=== PATIENT | male | born 1965 | race Caucasian/White ===

== ENCOUNTER 2024-01-29 06:40 | Emergency (ER) | payer OTHER, SELFPAY ==
[2024-01-29] VITALS (11 sets, daily range): BP systolic 127–151; BP diastolic 71–90; PULSE 76–106; RESP 16–20; TEMP 36.5–37; O2SAT 90–100; BMI 41.1
--- NOTE | 2024-01-29 07:27 | DI.CT.S_ITS ---
PROCEDURE: CT ABDOMEN PELVIS W CON INDICATIONS: Abdominal pain TECHNIQUE: After the administration of intravenous contrast, axial sections acquired from the lung bases to the pubic symphysis. Coronal and sagittal reformats were performed. For radiation dose reduction, the following was used: automated exposure control, adjustment of mA and/or kV according to patient size. COMPARISON: [facility], CT, CT ABDOMEN PELVIS WITH CONTRAST, 04/24/2023, 23:46. FINDINGS: Image quality: Diagnostic. Lower Chest: No significant findings. ABDOMEN: Liver: No solid mass. Gallbladder: No radiopaque gallstones or wall thickening. Biliary ducts: No biliary dilation. Pancreas: Extensive pancreatic calcifications are consistent with chronic pancreatitis. No acute pancreatitis noted. The pancreatic duct is chronically dilated. No focal mass identified.2 Spleen: Size is within normal limits. Adrenal Glands: No adrenal nodules. Kidneys and Ureters: No hydronephrosis. No solid mass. No complex renal cystic lesion which requires follow up. Stomach and Bowel: Normal colonic caliber, without significant wall thickening. Normal appendix. Peritoneum: No abnormal intraperitoneal fluid. No free air. Ventral Wall: No significant ventral hernia. Abdominal Nodes: No retroperitoneal or mesenteric adenopathy by size criteria. Vessels: Aorta and inferior vena cava are normal in size. PELVIS: Pelvic Organs: Mild prostatomegaly.. Bladder: No bladder wall thickening, accounting for underdistention. Pelvic Nodes: No enlarged lymph nodes. Miscellaneous: No inguinal hernias are seen. Bones: Lumbar degenerative change. No lytic or blastic bony lesions. No compression fractures. IMPRESSION: 1. No acute abdominal process. 2. Changes of chronic pancreatitis. Dictated by: Scot Jolly M.D. on 01/29/2024 at 9:15 Approved by: Scot Jolly M.D. on 01/29/2024 at 9:24
--- NOTE | 2024-01-29 07:29 | ED.BACK ---
HPI - Back Pain/Injury General Chief Complaint: Back Pain/Injury Stated Complaint: lower back pain Time Seen by Provider: 01/29/24 07:15 Source: patient History of Present Illness HPI Narrative: Patient here with significant other complains low back pain radiating to his inner thighs. This back pain is not new. Patient is on L and I for the past 1 year for his work. 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 Had injury 1 year ago and has had limited work duties with lifting however last week there was an infection and he did have to do more lifting. However he has had some chills and abdominal bloating as well. No chest pain. At times gets tingling to the legs and groin area. But no bowel or bladder incontinence or retention. No weakness to the legs. Is able to stand and walk. Pain is worse with trying to get up from a seated or lying position. Patient in shorts. Patient followed by [facility] in [place] for his L and I and primary care patient had SI joint injection 2 weeks ago. This is not new. Also has had hip joint injections in the past. Patient is on Flexeril for pain at home. Did try taking left her hydrocodone for in the past with minimal relief. Otherwise no dysuria frequency. No cough cold congestion or fever. Patient is diabetic. Related Data Previous Rx's Medication Instructions Recorded ondansetron 4 mg disintegrating 4 mg PO Q8H PRN nausea and 01/29/24 tablet vomiting #10 tabs oxycodone-acetaminophen 5 mg-325 1 tab PO Q4-6H PRN pain #20 tabs 01/29/24 mg tablet (Percocet) Allergies Allergy/AdvReac Type Severity Reaction Status Date / Time Sulfa (Sulfonamide Allergy Verified 01/29/24 07:55 Antibiotics) [id number] Reductase AdvReac Verified 01/29/24 07:55 Inhibitor Review of Systems Review of Systems Narrative: GENERAL: Positive chills, fatigue, malaise, negative fever, sweats. HEENT: negative sinus pain, ear pain, sore throat RESPIRATORY: negative dyspnea, cough CARDIOVASCULAR: negative chest pain, palpitations GASTROINTESTINAL: Positive nausea, negative vomiting, positive abdominal pain : negative dysuria, frequency, hematuria MUSCULOSKELETAL: Positive muscle or bony pain SKIN: negative rash, skin lesions NEUROLOGIC: negative weakness, positive numbness ROS Unobtainable: All systems reviewed & are unremarkable except as noted in HPI and below Patient History Social History Smoking Status: Never smoker Smoking Status: Never smoker Substance Use Type: marijuana Exam Narrative Exam Narrative: GENERAL: in no distress, not toxic not dyspneic HEAD: Normocephalic. EYES: Pupils equal round ENT: Mucous membranes moist. NECK: Trachea midline. CARDIOVASCULAR: Regular rate and rhythm RESPIRATORY: Clear to auscultation. Breath sounds equal bilaterally. No wheezes, rales, or rhonchi. GASTROINTESTINAL: Abdomen soft, non-tender, abdomen is soft nontender no peritoneal signs no CVA tenderness no pain out of portion exam bowel sounds are present. No peritoneal signs no guarding no rebound EXTREMITIES: No gross deformities. Reproducible bilateral inner thigh tenderness but no palpable cords. Patient states he was bending and lifting with his legs last week when they were effecting a resident from the shelter. There was a lot of items in the residents. The resident was a hoarder BACK: No flank tenderness. There is reproducible bilateral low paralumbar muscle tenderness. No midline tenderness or step-off. No erythema or fluctuance or induration. Limited side bends left and right as well as leaning forward back due to pain. Is slow to get up to stand from laying in seated position at the bed. Able to stand. Slow steady gait but no foot drop. Does have pain bilateral legs with straight leg raises at 45? NEURO: AOx4. Light touch intact to bilateral legs. Strong bilateral ankle flexion-extension as well as patellar reflexes. Steady slow gait but no foot drop SKIN: Warm and dry PSYCH: Not anxious, is cooperative Initial Vital Signs Initial Vital Signs: Vital Signs Temperature 97.7 F 01/29/24 06:50 Pulse Rate 106 H 01/29/24 06:50 Respiratory Rate 16 01/29/24 06:50 Blood Pressure 151/86 H 01/29/24 06:50 Pulse Oximetry 93 01/29/24 06:50 Oxygen Delivery Method Room Air 01/29/24 06:50 Course Orders Ordered: Discontinued Medications Sodium Chloride (Normal Saline 0.9%) 1,000 mls @ 1,000 mls/hr IV BOLUS ONE Stop: 01/29/24 08:25 Last Infusion: 01/29/24 09:08 Dose: Infused Documented By: Admin: 01/29/24 07:57 Dose: 1,000 mls/hr Documented By: TAMMY Morphine Sulfate (Morphine 4 Mg/Ml Inj) 4 mg IV NOW ONE Stop: 01/29/24 07:27 Last Admin: 01/29/24 07:56 Dose: 4 mg Documented By: TAMMY Ondansetron HCl (Ondansetron 4 Mg/2 Ml Inj) 4 mg IV NOW ONE Stop: 01/29/24 07:27 Last Admin: 01/29/24 09:08 Dose: Not Given Documented By: TAMMY Oxycodone/Acetaminophen (Oxycodone/Acetaminophen 5/325 Tablet) 2 tab PO NOW ONE Stop: 01/29/24 09:31 Last Admin: 01/29/24 10:00 Dose: 2 tab Documented By: TAMMY Vital Signs Vital signs: Vital Signs - 8 hr 01/29/24 06:50 01/29/24 07:05 01/29/24 07:30 Temperature 97.7 F Pulse Rate 106 H 92 H 101 H Respiratory Rate 16 Blood Pressure 151/86 H Pulse Oximetry 93 90 L 91 Oxygen Delivery Method Room Air 01/29/24 07:30 01/29/24 08:02 01/29/24 08:15 Temperature Pulse Rate Respiratory Rate Blood Pressure 148/85 H 136/85 Pulse Oximetry 96 Oxygen Delivery Method 01/29/24 08:15 01/29/24 08:30 01/29/24 08:30 Temperature Pulse Rate 100 H 90 Respiratory Rate Blood Pressure 139/82 Pulse Oximetry 92 93 Oxygen Delivery Method 01/29/24 08:54 01/29/24 08:58 01/29/24 09:00 Temperature Pulse Rate 88 Respiratory Rate Blood Pressure 141/85 H 134/71 Pulse Oximetry 92 Oxygen Delivery Method 01/29/24 10:03 Temperature 98.6 F Pulse Rate 89 Respiratory Rate 20 Blood Pressure 139/90 Pulse Oximetry 99 Oxygen Delivery Method Room Air MDM - Back Pain/Injury Lab Data 01/29/24 07:48 01/29/24 07:48 Labs: Lab Results 01/29/24 01/29/24 Range/Units 07:48 08:55 WBC 8.4 (4.5-11.0) X10^3/uL RBC 5.13 (4.5-5.9) X10^6/uL Hgb 14.2 (13.5-17.5) g/dL Hct 42.5 (41-53) % MCV 82.7 (80-100) fL MCH 27.7 (26-34) PG MCHC 33.5 (30-36) % RDW 13.4 (11.6-14.8) % Plt Count 243 (150-400) X10^3/uL Neut % (Auto) 78.7 H (50-75) % Lymph % (Auto) 11.6 L (25-40) % [place] % (Auto) 7.0 (3-14) % Eos % (Auto) 2.3 (2-4) % Baso % (Auto) 0.4 (0-2) % Neut # (Auto) 6600 (2771-1909) /uL Lymph # (Auto) 1000 L (9678-7273) /uL [place] # (Auto) 600 (0-900) /uL Eos # (Auto) 200 (0-450) /uL Baso # (Auto) 0 (0-100) /uL Sodium 139 (137-145) mmol/L Potassium 4.3 (3.4-5.1) mmol/L Chloride 105 (98-107) mmol/L Carbon Dioxide 28 (22-32) mmol/L BUN 17 (9-20) mg/dL Creatinine 0.94 (0.66-1.25) mg/dL Estimated GFR > 60 (>60) mL/min BUN/Creatinine Ratio 18.1 (6-22) Glucose 156 H (70-100) mg/dL Calcium 8.9 (8.4-10.2) mg/dL Total Bilirubin 0.7 (0.2-1.3) mg/dL AST 20 (17-59) IU/L ALT 24 (<50) IU/L Alkaline Phosphatase 50 (38-126) U/L Total Protein 7.2 (6.3-8.2) g/dL Albumin 4.2 (3.5-5.0) g/dL Globulin 3.0 (1.7-4.1) g/dL Albumin/Globulin Ratio 1.4 (1.0-2.8) Lipase 65 (23-300) U/L Chlamy pneumoniae PCR Not detected (Not Detect) Adenovirus (PCR) Not detected (Not Detect) B.parapertussis DNA PCR Not detected (Not Detecte) Coronavirus OC43 (PCR) Not detected (Not Detect) Coronavirus HKU1 (PCR) Not detected (Not Detect) Coronavirus 229E (PCR) Not detected (Not Detect) SARS-CoV-2 (PCR) Not detected (Not Detecte) Coronavirus NL63 (PCR) Not detected (Not Detect) Human Metapneumovir PCR Not detected (Not Detect) Influenza Type A (PCR) Not detected (Not Detect) Influenza Type B (PCR) Not detected (Not Detect) M. pneumoniae (PCR) Not detected (Not Detect) Parainfluenza 1 (PCR) Not detected (Not Detect) Parainfluenza 2 (PCR) Not detected (Not Detect) Parainfluenza 3 (PCR) Not detected (Not Detect) Parainfluenza 4 (PCR) Not detected (Not Detect) RSV (PCR) Not detected (Not Detect) Entero/Rhino (PCR) Not detected (Not Detect) Urine Dip Bedside Urine Glucose 1000 mg/dl Bedside Urine Bilirubin - Negative Bedside Urine Ketone - Negative Urine Specific [place] 1.010 Bedside Urine Occult Blood - Negative Bedside Urine pH 6.0 Bedside Urine Protein - Negative Bedside Urine Urobilinogen - Negative Bedside Urine Nitrite - Negative Bedside Urine Leukocytes - Negative Esterase Imaging Data CT scan - abdomen/pelvis: Radiologist's Impression: [place] [address] CT Scan Report Signed Patient: Contreras Gonzalez MR#: [id number] : 1965 Acct:[id number] Age/Sex: 58 / M Date of Service: 01/29/24 Loc: ED Accession Number: [id number] Procedure: CT abdomen pelvis w con Ordering Provider: Carlos Gamez MD PROCEDURE: CT ABDOMEN PELVIS W CON INDICATIONS: Abdominal pain TECHNIQUE: After the administration of intravenous contrast, axial sections acquired from the lung bases to the pubic symphysis. Coronal and sagittal reformats were performed. For radiation dose reduction, the following was used: automated exposure control, adjustment of mA and/or kV according to patient size. COMPARISON: [facility], CT, CT ABDOMEN PELVIS WITH CONTRAST, 04/24/2023, 23:46. FINDINGS: Image quality: Diagnostic. Lower Chest: No significant findings. ABDOMEN: Liver: No solid mass. Gallbladder: No radiopaque gallstones or wall thickening. Biliary ducts: No biliary dilation. Pancreas: Extensive pancreatic calcifications are consistent with chronic pancreatitis. No acute pancreatitis noted. The pancreatic duct is chronically dilated. No focal mass identified.2 Spleen: Size is within normal limits. Adrenal Glands: No adrenal nodules. Kidneys and Ureters: No hydronephrosis. No solid mass. No complex renal cystic lesion which requires follow up. Stomach and Bowel: Normal colonic caliber, without significant wall thickening. Normal appendix. Peritoneum: No abnormal intraperitoneal fluid. No free air. Ventral Wall: No significant ventral hernia. Abdominal Nodes: No retroperitoneal or mesenteric adenopathy by size criteria. Vessels: Aorta and inferior vena cava are normal in size. PELVIS: Pelvic Organs: Mild prostatomegaly.. Bladder: No bladder wall thickening, accounting for underdistention. Pelvic Nodes: No enlarged lymph nodes. Miscellaneous: No inguinal hernias are seen. Bones: Lumbar degenerative change. No lytic or blastic bony lesions. No compression fractures. IMPRESSION: 1. No acute abdominal process. 2. Changes of chronic pancreatitis. Dictated by: Scot Jolly M.D. on 01/29/2024 at 9:15 Approved by: Scot Jolly M.D. on 01/29/2024 at 9:24 US - DVT: Radiologist's Impression: [place] [address] Ultrasound Report Signed Patient: Contreras Gonzalez MR#: [id number] : 1965 Acct:[id number] Age/Sex: 58 / M Date of Service: 01/29/24 Loc: ED Accession Number: [id number] Procedure: US periph venous low extrem bi Ordering Provider: Carlos Gamez MD PROCEDURE: US PERIPH VENOUS LOW EXTREM BI INDICATIONS: thigh pain/swelling TECHNIQUE: Real-time imaging, as well as color and pulse Doppler interrogation, were performed of the deep veins of both legs from the inguinal ligament to the popliteal fossa, with documentation of the visualized calf veins. COMPARISON: None. FINDINGS: Right: The common femoral, femoral, popliteal, and the visualized calf veins are normally compressible, and free of intraluminal thrombus. Color and pulse Doppler demonstrate normal phasic intravascular flow. There is normal augmentation response to distal compression maneuver. A right-sided Gonzalez's cyst is seen that measures 4.4 x 1.6 x 3.6 cm. Left: The common femoral, femoral, popliteal, and the visualized calf veins are normally compressible, and free of intraluminal thrombus. Color and pulse Doppler demonstrate normal phasic intravascular flow. There is normal augmentation response to distal compression maneuver. IMPRESSION: No findings of deep venous thrombosis in either lower extremity. Dictated by: Arnel Quiroga M.D. on 01/29/2024 at 9:41 Approved by: Arnel Quiroga M.D. on 01/29/2024 at 9:41 [facility] Narrative Medical decision making narrative: Patient here with significant other complains low back pain radiating to his inner thighs. This back pain is not new. Patient is on L and I for the past 1 year for his work. 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 Had injury 1 year ago and has had limited work duties with lifting however last week there was an infection and he did have to do more lifting. However he has had some chills and abdominal bloating as well. No chest pain. At times gets tingling to the legs and groin area. But no bowel or bladder incontinence or retention. No weakness to the legs. Is able to stand and walk. Pain is worse with trying to get up from a seated or lying position. Patient in shorts. Patient followed by [facility] in [place] for his L and I and primary care patient had SI joint injection 2 weeks ago. This is not new. Also has had hip joint injections in the past. Patient is on Flexeril for pain at home. Did try taking left her hydrocodone for in the past with minimal relief. Otherwise no dysuria frequency. No cough cold congestion or fever. Patient is diabetic. After history and exam CBC CMP urinalysis lipase CT abdomen pelvis morphine Zofran normal saline, MRI lumbar spine respiratory panel Patient did provide MRI outpatient from his medical records April 09, 2023 MRI spine without contrast impression multilevel degenerative disc and facet changes. Prominent right lateral osteophytes L3-L4. L4-L5. L5 S1. Mild canal narrowing at multiple levels. Moderate right foraminal narrowing L3-L4 and L4-L5 [facility] Medical records reviewed: No previous visit for this complaint Differential considered: Includes but not limited to spinal abscess lumbar radiculopathy, back strain herniated disc Lab Test results independently reviewed as above. Pertinent findings: WBC 8.4 hemoglobin 14.2 sodium 139 potassium 4.3 GFR greater than 60 glucose 156 AST 20 ALT 24 lipase 65, POC urine negative leukocytes negative nitrite Respiratory panel negative Imaging studies independently reviewed: CT abdomen pelvis no acute findings Bilateral leg ultrasound no DVT Consultations: None indicated this time Treatments: Morphine Zofran normal saline oxycodone Re-evaluations: 11:00 a.m.. Updated patient results. Likely back strain from his overuse of his back last week beyond his L and I recommendations. Pain is controlled. Short course of pain medication provided. Return precautions reviewed. Patient desires it is driving. Discussion: Appropriate for discharge home. Exam is reassuring. communications technician did tell me that his right psoas muscle was very tight and painful on pressing down during ultrasound procedure. 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 Short course of pain medication provided. Return precautions reviewed. Patient desires discharge home Diagnosis: Acute on chronic back pain, lumbar strain, thigh strain Discharge Plan Departure Patient Disposition: Home Clinical Impression: Acute exacerbation of chronic low back pain Strain of lumbar region Qualifiers: Encounter type: initial encounter Qualified Code(s): S39.012A - Strain of muscle, fascia and tendon of lower back, initial encounter Muscle strain of thigh Qualifiers: Encounter type: initial encounter Laterality: unspecified laterality Qualified Code(s): S76.919A - Strain of unspecified muscles, fascia and tendons at thigh level, unspecified thigh, initial encounter Instructions: Managing Chronic Low Back Pain, DI for Muscle Strain, DI for Back Strain or Sprain Activity Restrictions/Additional Instructions: Your laboratory studies and imaging studies are reassuring as well as your exam. Likely over strained herself last week with work. This also caused strain in the thigh muscles. Laboratory studies are reassuring. No antibiotics are indicated. Prescription for pain medication/short course has been provided for you. Please do follow up with your L and I provider and family doctor. No driving or operating machine today or when taking prescribed pain medication. Return if worse if any questions or concerns. Work note has been provided for you. Prescriptions: New oxycodone-acetaminophen [Percocet] 5-325 mg tablet 1 tab PO Q4-6H PRN (Reason: pain) Qty: 20 0RF ondansetron 4 mg tablet,disintegrating 4 mg PO Q8H PRN (Reason: nausea and vomiting) Qty: 10 0RF Stand Alone Forms: Patient Portal/API, Work Release Note
[2024-01-29] MEDS: MORPHINE 4 MG/ML INJ IV (07:56)
[2024-01-29] MEDS: SODIUM CHLORIDE 0.9% 1,000 ML 1000 ML IV (07:57)
[2024-01-29 08:02] LABS: Add Manual Diff / Slide Review NO; Basophils Absolute Auto 0 /uL (0-100); Basophils Percent Auto 0.4 % (0-2); Eosinophils Absolute Auto 200 /uL (0-450); Eosinophils Percent Auto 2.3 % (2-4); Hematocrit 42.5 % (41-53); Hemoglobin 14.2 g/dL (13.5-17.5); Lymphocytes Absolute Auto 1000 /uL (1100-4500); Lymphocytes Percent Auto 11.6 % (25-40); Mean Corpuscular HGB Conc 33.5 % (30-36); Mean Corpuscular Hemoglobin 27.7 PG (26-34); Mean Corpuscular Volume 82.7 fL (80-100); Monocytes Absolute Auto 600 /uL (0-900); Neutrophils Absolute Auto 6600 /uL (1500-7000); Neutrophils Percent Auto 78.7 % (50-75); Platelet Count 243 X10^3/uL (150-400); Red Blood Cell Count 5.13 X10^6/uL (4.5-5.9); Red Cell Distribution Width 13.4 % (11.6-14.8); White Blood Cell Count 8.4 X10^3/uL (4.5-11.0)
[2024-01-29 08:06] LABS: Alanine Aminotransferase 24 IU/L (<50); Albumin 4.2 g/dL (3.5-5.0); Albumin Globulin Ratio 1.4 (1.0-2.8); Alkaline Phosphatase 50 U/L (38-126); Aspartate Aminotransferase 20 IU/L (17-59); BUN Creatinine Ratio 18.1 (6-22); Bilirubin Total 0.7 mg/dL (0.2-1.3); Blood Urea Nitrogen 17 mg/dL (9-20); Calcium 8.9 mg/dL (8.4-10.2); Carbon Dioxide 28 mmol/L (22-32); Chloride 105 mmol/L (98-107); Estimated Glomerular Filt Rate > 60 mL/min (>60); Glucose 156 mg/dL (70-100); HEMOLYSIS 16 (0-50); Lipase 65 U/L (23-300); Potassium 4.3 mmol/L (3.4-5.1); Sodium 139 mmol/L (137-145); Total Protein 7.2 g/dL (6.3-8.2)
--- NOTE | 2024-01-29 09:40 | DI.US.S_ITS ---
PROCEDURE: US PERIPH VENOUS LOW EXTREM BI INDICATIONS: thigh pain/swelling TECHNIQUE: Real-time imaging, as well as color and pulse Doppler interrogation, were performed of the deep veins of both legs from the inguinal ligament to the popliteal fossa, with documentation of the visualized calf veins. COMPARISON: None. FINDINGS: Right: The common femoral, femoral, popliteal, and the visualized calf veins are normally compressible, and free of intraluminal thrombus. Color and pulse Doppler demonstrate normal phasic intravascular flow. There is normal augmentation response to distal compression maneuver. A right-sided Gonzalez's cyst is seen that measures 4.4 x 1.6 x 3.6 cm. Left: The common femoral, femoral, popliteal, and the visualized calf veins are normally compressible, and free of intraluminal thrombus. Color and pulse Doppler demonstrate normal phasic intravascular flow. There is normal augmentation response to distal compression maneuver. IMPRESSION: No findings of deep venous thrombosis in either lower extremity. Dictated by: Arnel Quiroga M.D. on 01/29/2024 at 9:41 Approved by: Arnel Quiroga M.D. on 01/29/2024 at 9:41
[2024-01-29 09:56] LABS: Adenovirus Not Detected (Not Detect); B. parapertussis Not Detected (Not Detecte); Bordetella pertussis Not Detected (Not Detect); Chlamydophila pneumoniae Not Detected (Not Detect); Coronavirus 229E Not Detected (Not Detect); Coronavirus HKU1 Not Detected (Not Detect); Coronavirus NL 63 Not Detected (Not Detect); Coronavirus OC43 Not Detected (Not Detect); Human Metapneumovirus Not Detected (Not Detect); Human Rhinovirus/Enterovirus Not Detected (Not Detect); Influenza A Not Detected (Not Detect); Influenza B Not Detected (Not Detect); Mycoplasma pneumoniae Not Detected (Not Detect); Parainfluenza Virus 1 Not Detected (Not Detect); Parainfluenza Virus 2 Not Detected (Not Detect); Parainfluenza Virus 3 Not Detected (Not Detect); Parainfluenza Virus 4 Not Detected (Not Detect); Respiratory Syncytial Virus Not Detected (Not Detect); SARS- CoV-2 Not Detected (Not Detecte)
[2024-01-29] MEDS: OXYCODONE/ACETAMINOPHEN 5/325 TABLET 2 TAB PO (10:00)
== END 2024-01-29 11:14 | disposition home or self-care (01) ==
PROVIDERS: Emergency Provider Emergency Medicine
DX: S39.012A Strain of muscle, fascia and tendon of lower back, initial encounter (principal); S76.919A Strain of unspecified muscles, fascia and tendons at thigh level, unspecified thigh, initial encounter; X50.9XXA Other and unspecified overexertion or strenuous movements or postures, initial encounter
CPT/HCPCS: 36415; 74177; 80053; 81003; 83690; 85025; 87633; 93970; 96361; 96374; 99284; 99285; J2270; Q9967

== ENCOUNTER 2024-03-09 17:38 | Emergency (ER) | payer OTHER, SELFPAY ==
[2024-03-09 17:43] VITALS: BP 145/85; PULSE 94; RESP 18; TEMP 36.2; O2SAT 94; BMI 42.5
--- NOTE | 2024-03-09 18:40 | ED.EXTPRO ---
HPI - Extremity Problem <Hugo Luna PA-C - Last Filed: 03/09/24 18:46> General Chief complaint: Extremity Problem,Nontraumatic Stated complaint: lt hip and groin px Time Seen by Provider: 03/09/24 18:17 History of Present Illness HPI Narrative: 58-year-old male with pre-existing left hip and groin pain presents to the ED with an acute on chronic exacerbation. Patient is scheduled to see his surgeon on 17 March, and patient is here to see how he can be more comfortable for the next few days. Patient complains of left hip and groin pain, worse with standing and walking. The nature of the pain is unchanged from this last year. No numbness, tingling, weakness, urinary hesitancy, saddle paresthesias. This issue has been ongoing for the past year due to a injury during work. Patient does maintenance work. No new trauma or injury reported. Patient was seen in the ED on 01/29/2024 and a DVT and intra-abdominal pathologies were ruled out with a CT and ultrasound. Related Data Previous Rx's Medication Instructions Recorded ondansetron 4 mg disintegrating 4 mg PO Q8H PRN nausea and 01/29/24 tablet vomiting #10 tabs oxycodone-acetaminophen 5 mg-325 1 tab PO Q4-6H PRN pain #20 tabs 01/29/24 mg tablet (Percocet) oxycodone-acetaminophen 5 mg-325 1 tab PO Q8H PRN pain 7 days #20 03/09/24 mg tablet (Endocet) tabs Allergies Allergy/AdvReac Type Severity Reaction Status Date / Time Sulfa (Sulfonamide Allergy Verified 01/29/24 07:55 Antibiotics) [id number] Reductase AdvReac Verified 01/29/24 07:55 Inhibitor Review of Systems <Hugo Luna PA-C - Last Filed: 03/09/24 18:46> Constitutional Constitutional: Denies chills, Denies fatigue, Denies fever(s), Denies frequent falls, Denies lethargy and Denies weakness Eyes Eyes: Denies change in vision, Denies eye discharge, Denies irritation and Denies loss of vision ENT Ears, Nose, Mouth, and Throat: Denies change in voice, Denies dizziness, Denies neck pain, Denies sore throat and Denies throat swelling Cardiovascular Cardiovascular: Denies chest pain, Denies irregular heart rhythm, Denies lightheadedness, Denies palpitations, Denies dyspnea, Denies dyspnea on exertion and Denies orthopnea Respiratory Respiratory: Denies cough, Denies dyspnea, Denies dyspnea on exertion and Denies wheezing Gastrointestinal Gastrointestinal: Denies abdominal pain, Denies change in bowel habits, Denies diarrhea, Denies nausea and Denies vomiting Musculoskeletal Musculoskeletal: Denies neck pain and Denies numbness Comments: Left hip and groin pain Integumentary/Breasts Skin/Breast: Denies pruritus, Denies erythema, Denies rash and Denies wounds Neurologic Neurologic: Denies behavioral changes, Denies confusion, Denies dizziness, Denies frequent falls, Denies loss of vision, Denies numbness and Denies weakness Psychiatric Psychiatric: Denies anxiety, Denies behavioral changes, Denies confusion, Denies depression, Denies homicidal ideation and Denies suicidal ideation Endocrine Endocrine: Denies fatigue, Denies flushing and Denies palpitations Hematologic/Lymphatic Hematologic/Lymphatic: Denies easy bruising Allergic/Immunologic Allergic/Immunologic: Denies urticaria, Denies throat swelling and Denies wheezing Patient History <Hugo Luna PA-C - Last Filed: 03/09/24 18:46> Social History Smoking Status: Never smoker Smoking Status: Never smoker alcohol intake frequency: other Substance Use Type: marijuana Exam <Hugo Luna PA-C - Last Filed: 03/09/24 18:46> Narrative Exam Narrative: Const General:?cooperative, healthy appearing and comfortable [facility] Head:?normal to inspection Ears:?hearing grossly normal bilaterally Nose:?external nose normal Face and sinus:?normal facial exam and sinuses nontender Mouth:?oral mucosae normal Throat:?posterior oropharynx normal Eyes General:?appearance normal, both eyes and all related structures Neck Neck:?normal visual inspection and no lymphadenopathy noted Resp Effort & Inspection:?normal respiratory effort Auscultation:?clear to auscultation bilaterally Cardio Rate:?regular rate Rhythm:?regular rhythm Musculoskeletal No deformities, erythema, masses. Neurovascularly intact. Neuro General:?patient alert, patient awake and patient oriented x3 Initial Vital Signs Initial Vital Signs: Vital Signs Temperature 97.1 F L 03/09/24 17:43 Pulse Rate 94 H 03/09/24 17:43 Respiratory Rate 18 03/09/24 17:43 Blood Pressure 145/85 H 03/09/24 17:43 Pulse Oximetry 94 03/09/24 17:43 Oxygen Delivery Method Room Air 03/09/24 17:43 <Lance Pandey DO - Last Filed: 03/10/24 10:11> Initial Vital Signs Initial Vital Signs: Vital Signs Temperature 97.1 F L 03/09/24 17:43 Pulse Rate 94 H 03/09/24 17:43 Respiratory Rate 18 03/09/24 17:43 Blood Pressure 145/85 H 03/09/24 17:43 Pulse Oximetry 94 03/09/24 17:43 Oxygen Delivery Method Room Air 03/09/24 17:43 Course <Hugo Luna PA-C - Last Filed: 03/09/24 18:46> Vital Signs Vital signs: Vital Signs - 8 hr 03/09/24 17:43 Temperature 97.1 F L Pulse Rate 94 H Respiratory Rate 18 Blood Pressure 145/85 H Pulse Oximetry 94 Oxygen Delivery Method Room Air <Lance Pandey DO - Last Filed: 03/10/24 10:11> Vital Signs Vital signs: Vital Signs - 8 hr 03/09/24 17:43 Temperature 97.1 F L Pulse Rate 94 H Respiratory Rate 18 Blood Pressure 145/85 H Pulse Oximetry 94 Oxygen Delivery Method Room Air MDM - Extremity (Nontraumatic) <Hugo Luna PA-C - Last Filed: 03/09/24 18:46> MDM Narrative Medical decision making narrative: 58-year-old male with pre-existing left hip and groin pain presents to the ED with an acute on chronic exacerbation. Given no new trauma or injury, no indication for imaging at this time. Patient's symptoms are most consistent with a musculoskeletal sprain/strain. It is also reassuring that patient has an appointment with the surgeon in 1 week. Will help patient manage the pain for the next few days with pain medication. ED return precautions were discussed with patient. Patient verbalized understanding. Medical records reviewed: Yes <DO Neisha Seymour Last Filed: 03/10/24 10:11> MDM Narrative Medical decision making narrative: 58-year-old male with pre-existing left hip and groin pain presents to the ED with an acute on chronic exacerbation. Given no new trauma or injury, no indication for imaging at this time. Patient's symptoms are most consistent with a musculoskeletal sprain/strain. It is also reassuring that patient has an appointment with the surgeon in 1 week. Will help patient manage the pain for the next few days with pain medication. ED return precautions were discussed with patient. Patient verbalized understanding. Medical records reviewed: Yes Dr. Pandey: I was immediately available in the department for consultation. Documentation has been reviewed. I agree with assessment and plan. Discharge Plan Departure Patient Disposition: Home Clinical Impression: Hip pain Qualifiers: Laterality: left Qualified Code(s): M25.552 - Pain in left hip Instructions: DI for Hip Pain Activity Restrictions/Additional Instructions: You were evaluated in the ED today for left-sided hip and groin pain. You are being prescribed pain medications to keep you comfortable until you can meet with your surgeon 1 week from now. You may take 1 pill of the Percocet along with 650 mg of Tylenol every 8 hours. Return to the ED if you have worsening symptoms, numbness, tingling, weakness, urinary difficulties. Prescriptions: New oxycodone-acetaminophen [Endocet] 5-325 mg tablet 1 tab PO Q8H PRN (Reason: pain) 7 Days Qty: 20 0RF No Action oxycodone-acetaminophen [Percocet] 5-325 mg tablet 1 tab PO Q4-6H PRN (Reason: pain) Qty: 20 0RF ondansetron 4 mg tablet,disintegrating 4 mg PO Q8H PRN (Reason: nausea and vomiting) Qty: 10 0RF Referrals: Miscellaneous,Doctor, MD [Primary Care Provider] - Stand Alone Forms: Patient Portal/API, Work Release Note
[2024-03-09 18:44] VITALS: BP 147/77; PULSE 85; RESP 18; O2SAT 99
== END 2024-03-09 18:46 | disposition home or self-care (01) ==
PROVIDERS: Emergency Provider Student in an Organized Health Care Education/Training Program
DX: M25.552 Pain in left hip (principal)
CPT/HCPCS: 99281